=== PATIENT | male | born 1935 | race Caucasian/White ===

== ENCOUNTER → 2016-08-29 | Outpatient (CLI) | payer MEDICARE ==
[~2016-08-29] MED LIST: ADVIL200 MG PO; ALENDRONATE SOD70 MG PO; ASPIRIN325 MG PO; AUGMENTIN875 MG PO; MIRALAX DPS17 GM PO; PEPCID20 MG PO; SIMVASTATIN20 MG PO; SURFAK240 MG PO; SYMBICORT160 MCG/6 IH; TYLENOL325 MG PO; VITAMIN D-32000 UNI1 PO
== END | disposition home or self-care (01) ==
LOC: RAD.S 14:13
DX: C34.11 Malignant neoplasm of upper lobe, right bronchus or lung (principal); J43.9 Emphysema, unspecified; K44.9 Diaphragmatic hernia without obstruction or gangrene; K80.20 Calculus of gallbladder without cholecystitis without obstruction